=== PATIENT | female | born 2005 | race Two or more races ===

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

== ENCOUNTER 2023-06-10 22:20 | Emergency (ER) | payer MEDICAID ==
[~2023-06-10] VITALS: Ht 152.4 cm; Wt 45.5 kg
[~2023-06-10 22:20] MED LIST changes: +NAPR-746 PO; -NAPR500T31 PO
[2023-06-10 23:45] LABS: Basophils # (auto) 0.1 10 ^3/uL (0-0.2); Basophils % (auto) 0.4 % (0.0-2.0); Eosinophils # (auto) 0 10 ^3/uL (0-0.8); Hematocrit 37.6 % (36.0-46.0); Hemoglobin 12.9 g/dL (12.2-16.2); Lymphocytes # (auto) 0.8 10 ^3/uL (0.4-5.4); Lymphocytes % (auto) 3.5 % (10.0-50.0); Mean Corpuscular Hemoglobin 29.3 pg (28.0-32.0); Mean Corpuscular Hgb Conc. 34.3 g/dL (32.0-36.0); Mean Corpuscular Volume 85.5 fL (80.0-100.0); Monocytes # (auto) 0.9 10 ^3/uL (0-1.3); Monocytes % (auto) 3.7 % (0.0-12.0); Neutrophils # (auto) 21.9 10 ^3/uL (1.6-8.6); Neutrophils % (auto) 92.4 % (37.0-80.0); Nucleated Red Blood Cells % 0.1 %; Red Blood Cells 4.39 10^6/uL (4.0-5.20); Red Cell Distribution Width 13.1 % (11.8-14.3); White Blood Cell 23.7 10^3/uL (4.4-10.8)
[2023-06-10 23:47] LABS: Urine Amorphous Crystal FEW /hpf (None Seen); Urine Bacteria NONE SEEN /hpf (None Seen); Urine Blood 1+ /uL (Negative); Urine Clarity CLOUDY (Clear); Urine Color Yellow (Yellow); Urine Protein, UAD 1+ (Negative); Urine Specific Gravity 1.032 (1.001-1.035); Urine Urobilinogen Normal (Negative); Urine WBC 1 /hpf (0 - 5); Urine pH 5.5 (5.0-8.0)
[2023-06-10 23:49] LABS: Chloride 105 mmol/L (98-107); Potassium 3.6 mmol/L (3.5-5.1); Sodium 137 mmol/L (136-145)
[2023-06-10 23:50] LABS: Anion Gap 14 (5-15); Carbon Dioxide 18 mmol/L (20-30)
[2023-06-10 23:51] LABS: Amphetamine Screen, Urine Neg (NEGATIVE); Benzodiazephine Screen, Urine Neg (NEGATIVE); Calcium 9.6 mg/dL (8.7-10.4)
[2023-06-10 23:52] LABS: Barbiturate Scree,Urine Neg (NEGATIVE); Cannabinoid Screen, Urine Neg (NEGATIVE); Cocaine Screen, Urine Neg (NEGATIVE); Opiate Scree,Urine Neg (NEGATIVE); Phencyclidine Screen, Urine Neg (NEGATIVE)
[2023-06-10 23:55] LABS: Glucose 103 mg/dL (74-106)
[2023-06-10 23:56] LABS: BUN/Creatinine Ratio 14.7 (10.0-20.0); Blood Urea Nitrogen 11 mg/dL (9-23)
[2023-06-11] MEDS ORDERED: LORazepam 2MG/ML-1ML VIAL IM ONE (00:45)
[2023-06-11] MEDS ORDERED: AZIT500T66 PO (02:48)
[2023-06-11 02:55] VITALS: BP 118/75; PULSE 105; RESP 16; TEMP 98.6; O2SAT 100
[2023-06-11] MEDS ORDERED: IOHEXOL 350 MG/ML 100ML IJ ONE (04:09)
== END 2023-06-11 03:04 | disposition home or self-care (01) ==
LOC: EDBD 22:20 → ER 22:20
DX: F41.0 Panic disorder [episodic paroxysmal anxiety] (principal); D72.829 Elevated white blood cell count, unspecified; R51.9 Headache, unspecified; M54.2 Cervicalgia; R07.89 Other chest pain
CPT/HCPCS: 36415; 70450; 71045; 71250; 74176; 80048; 80307; 81001; 81025; 84484; 85025; 96372; 99285; J2060